=== PATIENT | female | born 1965 | race Caucasian/White ===

== ENCOUNTER 2016-12-25 09:36 | Day surgery (SDC) | payer OTHER ==
[2016-12-24 10:46] VITALS: BMI 24.7
[~2016-12-25 09:36] MED LIST: LACTATED RINGERS 1,000 ML IV SCH
[2016-12-25 09:49] VITALS: TEMP 98
[2016-12-25] MEDS ORDERED: LACTATED RINGERS 1,000 ML IV ONE (09:49)
[2016-12-25] MEDS ORDERED: LIDOCAINE 1% 20 ML VIAL (10MG/ML) FOR IV START INTRADERMA ONE (09:50)
[2016-12-25] MEDS ORDERED: LIDOCAINE 1% INJ 10MG/ML (20 ML MDV) ONE (11:14)
[2016-12-25] MEDS ORDERED: PROPOFOL 10 MG/ML 20 ML VIAL IV ONE (11:14)
--- NOTE | 2016-12-25 11:17 | P.GSHP ---
History of Present Illness H&P Date: 12/25/16 Chief Complaint: GI bleed This a 51-year-old female second complaints of epigastric abdominal pain and GI bleed. Patient rents today for EGD and colonoscopy. She has had a previous history of peptic ulcer disease. Past Medical History Past Medical History: GERD/Reflux, Skin Disorder Additional Past Medical History / Comment(s): "freq constipation, heartburn since gall bladder removed,pain where gallbladder used to be, and bleeding from the rectum 2 weeks ago",Acne,2 large cyst rt kidney History of Any Multi-Drug Resistant Organisms: None Reported Past Surgical History: Back Surgery, Cholecystectomy, Hysterectomy Additional Past Surgical History / Comment(s): kyphoplasty L2 Past Anesthesia/Blood Transfusion Reactions: Family History of Problems w/ Anesthesia, Postoperative Nausea & Vomiting (PONV) Additional Past Anesthesia/Blood Transfusion Reaction / Comment(s): Mother PONV.No hx blood transfusion Smoking Status: Current every day smoker - Past Family History Mother Family Medical History: Cancer, Diabetes Mellitus Additional Family Medical History / Comment(s): pancreatic,bowel,liver Father Family Medical History: Cancer, Diabetes Mellitus Additional Family Medical History / Comment(s): brain tumor,leukemia Medications and Allergies Home Medications Medication Instructions Recorded Confirmed Type Clindamycin Phosphate [Cleocin T] 1 applic TOPICAL DAILY 12/24/16 12/24/16 History DULoxetine HCL [Cymbalta] 60 mg PO QAM 12/24/16 12/24/16 History FLUoxetine HCL [PROzac] 20 mg PO HS 12/24/16 12/24/16 History Gabapentin 600 mg PO TID 12/24/16 12/25/16 History Minocycline HCl 100 mg PO BID 12/24/16 12/24/16 History Multivit-Min/FA/Lycopen/Lutein 1 each PO DAILY 12/24/16 12/24/16 History [Centrum Silver Tablet] Omeprazole 20 mg PO BID 12/24/16 12/24/16 History Ranitidine HCl 150 mg PO BID 12/24/16 12/24/16 History buPROPion HCL [buPROPion HCL SR] 150 mg PO QAM 12/24/16 12/24/16 History Allergies Allergy/AdvReac Type Severity Reaction Status Date / Time No Known Allergies Allergy Verified 12/24/16 10:34 Surgical - Exam Vital Signs Temp Pulse Resp BP Pulse Ox 98.0 F 78 18 108/74 99 12/25/16 09:48 12/25/16 09:48 12/25/16 09:48 12/25/16 09:48 12/25/16 09:48 - General well developed - Eyes PERRL - ENT normal pinna - Neck no masses - Respiratory normal expansion - Cardiovascular Rhythm: regular - Abdomen Abdomen: soft, non tender Assessment and Plan Plan: GI bleed, history of peptic ulcer disease. We'll perform EGD and colonoscopy.
--- NOTE | 2016-12-25 11:32 | P.OP ---
Date of Procedure: 12/25/16 Preoperative Diagnosis: GI bleed Postoperative Diagnosis: Antral gastritis Large sliding hiatal hernia Esophagitis with erosion Normal colon Procedure(s) Performed: EGD Colonoscopy Implants: Anesthesia: MAC Surgeon: Asael Larson Pathology: other (Antrum, esophagus) Condition: stable Disposition: PACU Indications for Procedure: Operative Findings: Description of Procedure: PROCEDURE: The patient was placed on the endoscopy table in the lateral position. Digital rectal examination was performed which revealed no abnormalities. . Flexible colonoscope was then placed in the patient's anus and passed throughout the entire colon. The ileocecal valve was visualized. The cecum, ascending, transverse, descending and sigmoid colon were normal. The rectum was normal as well. There were no masses, polyps or diverticula noted in the entire colon. Next, the gastric was placed oropharynx and passed into the esophagus and into the stomach. The scope was then placed through the pylorus. The first and second portion of the duodenum appeared normal. Scope was then brought back the antrum and this appeared mildly inflamed. A biopsies performed. The scope was then retroflexed and the remainder of the stomach appeared normal. There was a large sliding hiatal hernia. The GE junction was at 38 cm. The distal esophagus inflamed is evidence of erosions. The proximal esophagus appeared normal. The scope was withdrawn for patient.
[2016-12-25 11:37] VITALS: RESP 16
[2016-12-25 11:47] VITALS: BP 98/66; PULSE 60
== END 2016-12-25 12:09 | disposition home or self-care (01) ==
LOC: ORWHC2ENDO 09:36
PROVIDERS: ATTEND Surgery
DX: K21.0 Gastro-esophageal reflux disease with esophagitis (principal); K29.50 Unspecified chronic gastritis without bleeding; K44.9 Diaphragmatic hernia without obstruction or gangrene; K92.2 Gastrointestinal hemorrhage, unspecified; K59.00 Constipation, unspecified; F17.200 Nicotine dependence, unspecified, uncomplicated; F39 Unspecified mood [affective] disorder; Z79.2 Long term (current) use of antibiotics; Z79.899 Other long term (current) drug therapy
CPT/HCPCS: 88305; 88342; 45378; 43239; J2001; J2704

== ENCOUNTER → 2017-09-21 | Outpatient (CLI) | payer BC ==
[2017-09-21 11:52] LABS: Basophils % (A) 1 %; Eosinophils # (A) 0.2 k/uL (0-0.7); Eosinophils % (A) 2 %; HCT 45.1 % (34.0-46.0); HGB 15.1 gm/dL (11.4-16.0); Lymphocytes # (A) 2.6 k/uL (1.0-4.8); Lymphocytes % (A) 35 %; MCHC 33.4 g/dL (31.0-37.0); MCV 95.9 fL (80.0-100.0); Mean Platelet Volume 7.4; Monocytes # (A) 0.3 k/uL (0-1.0); Monocytes % (A) 5 %; Neutrophils % (A) 56 %; Platelet Count 228 k/uL (150-450); RDW 12.6 % (11.5-15.5); WBC 7.3 k/uL (3.8-10.6)
== END | disposition home or self-care (01) ==
LOC: LABPAT 11:20
PROVIDERS: ATTEND Surgery
DX: Z01.812 Encounter for preprocedural laboratory examination (principal); D64.9 Anemia, unspecified; K21.0 Gastro-esophageal reflux disease with esophagitis; F17.200 Nicotine dependence, unspecified, uncomplicated
CPT/HCPCS: 36415; 85025

== ENCOUNTER 2017-09-24 08:31 | Inpatient (IN) | payer BC ==
[2017-09-23 10:25] VITALS: BMI 23.1
[~2017-09-24 08:31] MED LIST changes: +DEXAMETHASONE SOD PHOSPHATE 10 MG/ML 1 ML VIAL IV ONE; +HEPARIN SODIUM,PORCINE 5,000 UNIT/ML 1 ML VIAL SQ ONE; +LIDOCAINE 1% 20 ML VIAL (10MG/ML) FOR IV START INTRADERMA PRN; +MIDAZOLAM 2 MG/2 ML VIAL IV PRN; +MORPHINE SULFATE 4 MG/0.8 ML SYRINGE (INJ) IV PRN; +SCOPOLAMINE 1.5MG/72HR PATCH TRANSDERM ONE; +ceFAZolin IN SWFI 2 GM/20 ML SYRINGE IVP ONE
[2017-09-24] MEDS ORDERED: ONDANSETRON 4 MG/2 ML VIAL IVP ONE (10:05)
[2017-09-24] MEDS: ONDANSETRON ODT 4 MG TAB PO ONE ×2 (10:05→14:07)
--- NOTE | 2017-09-24 10:15 | P.GSHP ---
History of Present Illness H&P Date: 09/24/17 Chief Complaint: GERD This is a 51-year-old female referred from Dr. dunne. Patient presents today for laparoscopic Calvin fundal location.The patient has had long-standing problems with reflux esophagitis. The patient underwent recent EGD is found have evidence of esophagitis. Patient has been well informed on the procedure of laparoscopic Calvin fundoplication. The patient is aware the risk of the conversion to the open procedure, risk of injury to the stomach, liver and spleen. The patient is also a risk of recurrent GERD and dysphagia symptoms. The patient understands there is a postoperative diet of full liquids for 2 weeks after surgery. Past Medical History Past Medical History: GERD/Reflux, Musculoskeletal Disorder, Skin Disorder Additional Past Medical History / Comment(s): "freq constipation. heartburn since gall bladder removed. HX GASTRIC ULCER. HIATAL HERNIA. Acne. 2 large cyst rt kidney. HEALED FX IN BACK, CHRONIC DAILY BACK PAIN. History of Any Multi-Drug Resistant Organisms: None Reported Past Surgical History: Back Surgery, Cholecystectomy, Hysterectomy Additional Past Surgical History / Comment(s): kyphoplasty L2. EGD. COLONOSCOPY. Past Anesthesia/Blood Transfusion Reactions: Postoperative Nausea & Vomiting ( PONV) Additional Past Anesthesia/Blood Transfusion Reaction / Comment(s): Mother PONV. No hx blood transfusion Past Psychological History: Depression Smoking Status: Current every day smoker Past Alcohol Use History: Rare Additional Past Alcohol Use History / Comment(s): started smoking at age 13, 1ppd Past Drug Use History: None Reported - Past Family History Mother Family Medical History: Cancer, Diabetes Mellitus, Deep Vein Thrombosis (DVT) Additional Family Medical History / Comment(s): pancreatic,bowel,liver Father Family Medical History: Cancer, Diabetes Mellitus Additional Family Medical History / Comment(s): brain tumor,leukemia Medications and Allergies Home Medications Medication Instructions Recorded Confirmed Type Clindamycin Phosphate [Cleocin T] 1 applic TOPICAL BID 12/24/16 09/23/17 History DULoxetine HCL [Cymbalta] 60 mg PO BID 12/24/16 09/23/17 History FLUoxetine HCL [PROzac] 20 mg PO HS 12/24/16 09/23/17 History Gabapentin 600 mg PO TID 12/24/16 09/23/17 History Minocycline HCl 100 mg PO BID 12/24/16 09/23/17 History Omeprazole 20 mg PO BID 12/24/16 09/23/17 History Ranitidine HCl 150 mg PO BID 12/24/16 09/23/17 History Biotin 10,000 mcg PO DAILY 09/04/17 09/23/17 History Melatonin 1 mg PO HS 09/04/17 09/23/17 History Multivitamin/Iron/Folic Acid 1 each PO DAILY 09/04/17 09/23/17 History [Centrum Women Tablet] Polyethylene Glycol 3350 [Miralax] 17 gm PO BID PRN 09/04/17 09/23/17 History Bimatoprost [Latisse .03%] 1 dropper TOPICAL DAILY 09/23/17 09/23/17 History Hydrocodone/Acetaminophen [Vicodin 1 tab PO Q6HR PRN 09/23/17 09/23/17 History Es 7.5-300 mg Tablet] Allergies Allergy/AdvReac Type Severity Reaction Status Date / Time No Known Allergies Allergy Verified 09/09/17 08:41 Surgical - Exam Vital Signs Temp Pulse Resp BP Pulse Ox 98.3 F 66 18 101/68 96 09/24/17 09:38 09/24/17 09:38 09/24/17 09:38 09/24/17 09:38 09/24/17 09:38 - General well developed, no distress - Eyes PERRL - ENT normal pinna - Neck no masses - Respiratory normal expansion - Cardiovascular Rhythm: regular - Abdomen Abdomen: soft, non tender Assessment and Plan Assessment: GERD. We'll perform laparoscopic Calvin fundal plication.
[2017-09-24] MEDS ORDERED: SUCCINYLCHOLINE CHLORIDE 100 MG/5 ML SYR IV ONE (10:27)
[2017-09-24] MEDS ORDERED: VECURONIUM 10 MG VIAL IV ONE (10:27)
[2017-09-24] MEDS ORDERED: GLYCOPYRROLATE 0.2 MG/ML 2 ML VIAL ONE (10:27)
[2017-09-24] MEDS ORDERED: ePHEDrine SULFATE/0.9% NACL/PF 50 MG/5 ML SYRINGE IV ONE (10:27)
[2017-09-24] MEDS ORDERED: LIDOCAINE 1% INJ 10MG/ML (20 ML MDV) ONE (10:27)
[2017-09-24] MEDS ORDERED: fentaNYL (PF) 50 MCG/ML 2 ML AMP ONE (10:27)
[2017-09-24] MEDS ORDERED: PROPOFOL 10 MG/ML 20 ML VIAL IV ONE (10:27)
[2017-09-24] MEDS ORDERED: PHENYLEPHRINE-0.9% NACL SYG 1 MG/10 ML SYRINGE ONE (10:27)
[2017-09-24] MEDS ORDERED: NEOSTIGMINE 1 MG/ML 10 ML VIAL ONE (10:27)
[2017-09-24] MEDS ORDERED: MIDAZOLAM 2 MG/2 ML VIAL ONE (10:27)
[2017-09-24] MEDS ORDERED: MORPHINE SULFATE 10 MG/ML SYRINGE ONE (10:27)
[2017-09-24] MEDS ORDERED: BUPIVACAINE (PF) 0.25% 30 ML VIAL SQ ONE (11:02)
[2017-09-24] MEDS ORDERED: LACTATED RINGERS 1,000 ML IV ONE (11:08)
[2017-09-24] MEDS ORDERED: ONDANSETRON 4 MG/2 ML VIAL IVP PRN (11:38)
--- NOTE | 2017-09-24 11:41 | P.OP ---
Date of Procedure: 09/24/17 Preoperative Diagnosis: GERD Postoperative Diagnosis: GERD Procedure(s) Performed: Laparoscopic Calvin fundoplication Anesthesia: ROSIE Surgeon: Asael Larson Estimated Blood Loss (ml): 5 Pathology: none sent Condition: stable Disposition: PACU Description of Procedure: The patient was placed on the operating table in the supine position. The patient received general anesthesia. And was placed in dorsal lithotomy position. The patient was prepped and draped in the usual sterile fashion. The skin incision sites were anesthetized with 1% local Xylocaine. The skin was incised in the left periumbilical area and then using a blade less 5 mm trocar under direct visualization panel cavity was entered. After adequate insufflation the laparoscope was then placed into the peritoneal cavity. Next a 5 mm trochars placed in the right epigastric position. Another 5 millimeter trocar the right lateral position. Another 5 millimeter trocar in the left lateral position a 5 mm trocar is placed in the left epigastric position. And then the initial 5 mm trocar was exchanged for a 10 mm trocar. The left lateral lobe liver was retracted. The hernia was seen. The crural defect was then dissected using the Harmonic scissors device. A 360 crural dissection was performed the esophagus stomach was reduced back into the peritoneal Cavity. The crural defect was then closed using 2-0 Ethibond suture. Next the fundus of the stomach was mobilized using the [place] scissors device. and then a 58-Yoruba bougie dilator was placed oropharynx passed into the esophagus and stomach the fundal plication wrap was then performed by grasping the fundus posteriorly and bringing it around the esophagus and stomach fundoplication was then performed using 2-0 Ethibond suture. Care was taken that the fundal location rested over top of the intra-abdominal esophagus. There was no injury seen to the stomach or esophagus. The dilator was then withdrawn. The abdomen was irrigated there is no bleeding seen. The trochars were then withdrawn and then skin incision sites were closed using 3-0 Monocryl suture Steri-Strips are applied. Patient thought procedure well and sent to recovery room in stable condition.
--- NOTE | 2017-09-24 15:39 | P.CONS ---
History of Present Illness - Reason for Consult Consult date: 09/24/17 Medical management Requesting physician: Asael Larson - Chief Complaint Status post Calvin fundoplication - History of Present Illness This is a 51-year-old female, patient of [facility]. She has a known past medical history of GERD, osteoarthritis, osteopenia, chronic back pain, acne, nicotine dependence and depression. Patient presents to the hospital for an elective Calvin fundoplication. She tolerated surgery well. No complications reported. Vitals are currently stable. Patient is starting reports some right-sided abdominal discomfort and shoulder discomfort. She denies any shortness of breath. Denies any nausea or vomiting. I was having regular bowel movements before admission and denies any burning with urination or difficulty urinating. Denies any fever or chills or sweats. We have been consulted for medical management. Review of Systems Please refer to HPI otherwise unremarkable Past Medical History Past Medical History: GERD/Reflux, Musculoskeletal Disorder, Skin Disorder Additional Past Medical History / Comment(s): "freq constipation. heartburn since gall bladder removed. HX GASTRIC ULCER. HIATAL HERNIA. Acne. 2 large cyst rt kidney. HEALED FX IN BACK, CHRONIC DAILY BACK PAIN. History of Any Multi-Drug Resistant Organisms: None Reported Past Surgical History: Back Surgery, Cholecystectomy, Hysterectomy Additional Past Surgical History / Comment(s): kyphoplasty L2. EGD. COLONOSCOPY. Past Anesthesia/Blood Transfusion Reactions: Postoperative Nausea & Vomiting ( PONV) Additional Past Anesthesia/Blood Transfusion Reaction / Comm: Mother PONV. No hx blood transfusion Past Psychological History: Depression Smoking Status: Current every day smoker Past Alcohol Use History: Rare Additional Past Alcohol Use History / Comment(s): started smoking at age 13, 1ppd Past Drug Use History: None Reported - Past Family History Mother Family Medical History: Cancer, Diabetes Mellitus, Deep Vein Thrombosis (DVT) Additional Family Medical History / Comment(s): pancreatic,bowel,liver Father Family Medical History: Cancer, Diabetes Mellitus Additional Family Medical History / Comment(s): brain tumor,leukemia Medications and Allergies Home Medications Medication Instructions Recorded Confirmed Type Clindamycin Phosphate [Cleocin T] 1 applic TOPICAL BID 12/24/16 09/24/17 History DULoxetine HCL [Cymbalta] 60 mg PO BID 12/24/16 09/24/17 History FLUoxetine HCL [PROzac] 20 mg PO HS 12/24/16 09/24/17 History Gabapentin 600 mg PO TID 12/24/16 09/24/17 History Minocycline HCl 100 mg PO BID 12/24/16 09/24/17 History Omeprazole 20 mg PO BID 12/24/16 09/24/17 History Ranitidine HCl 150 mg PO BID 12/24/16 09/24/17 History Biotin 10,000 mcg PO DAILY 09/04/17 09/24/17 History Melatonin 1 mg PO HS 09/04/17 09/24/17 History Multivitamin/Iron/Folic Acid 1 tab PO DAILY 09/04/17 09/24/17 History [Centrum Women Tablet] Polyethylene Glycol 3350 [Miralax] 17 gm PO BID PRN 09/04/17 09/24/17 History Bimatoprost [Latisse .03%] 1 dropper TOPICAL DAILY 09/23/17 09/24/17 History Hydrocodone/Acetaminophen [Vicodin 1 tab PO Q6HR PRN 09/23/17 09/24/17 History Es 7.5-300 mg Tablet] Allergies Allergy/AdvReac Type Severity Reaction Status Date / Time No Known Allergies Allergy Verified 09/24/17 14:04 Physical Exam Vitals: Vital Signs Temp Pulse Pulse Resp BP BP Pulse Ox 09/24/17 14:24 16 09/24/17 13:45 67 16 101/60 93 L 09/24/17 13:30 75 16 106/63 93 L 09/24/17 13:15 65 16 97/65 91 L 09/24/17 13:00 97.0 F L 58 L 16 105/58 96 09/24/17 12:34 59 L 16 124/65 100 09/24/17 12:19 60 16 120/70 100 09/24/17 12:04 83 16 121/70 100 09/24/17 11:49 97 F L 72 16 123/62 98 09/24/17 09:38 98.3 F 66 18 101/68 96 Intake and Output 09/24/17 09/24/17 09/24/17 06:59 14:59 22:59 Intake Total 1330 Output Total 10 Balance 1320 Intake: IV 1300 Oral 30 Output: Estimated Blood Loss 10 Other: Weight 68.039 kg Head normocephalic Neck supple Lungs clear to auscultation bilaterally no wheezing or crackles Heart regular rate and rhythm S1-S2, no rub or gallop Abdomen is soft nontender nondistended positive bowel sounds no hepatosplenomegaly Extremities no edema Neuro alert and orientated to 3 Assessment and Plan Assessment: 1. GERD: Status post Calvin fundoplication. Patient scheduled for esophagram. Continue with current pain medications. Surgery has started her on a clear liquid diet. 2. Nicotine dependence: Discussed smoking cessation for greater than 3 minutes. Add nicotine patch 3. Depression: Continue Prozac and Cymbalta 4. Acne resume patient's antibiotics the minocycline and clindamycin DVT prophylaxis Lovenox Check routine blood work CBC and BMP in a.m. Thank you for this consultation. We'll continue to follow along with you during patient's hospitalization Time with Patient: Greater than 30 (Greater than 50% of the total time spent in counseling and coordination of care.I performed an examination of the patient and discussed their management with the physician Grails Web Application Developer. I have reviewed the Physician Grails Web Application Developer's notes and agree with the documented findings and plan of care)
[2017-09-24] MEDS ORDERED: NICOTINE 21MG/24HR PATCH TRANSDERM SCH (16:00)
[2017-09-24] MEDS: MORPHINE SULFATE 4 MG/0.8 ML SYRINGE (INJ) IVP PRN ×2 (16:35→20:56)
[2017-09-24] MEDS: GABAPENTIN 300 MG CAP PO SCH ×2 (16:43→20:41)
--- NOTE | 2017-09-24 16:49 | FL ---
EXAMINATION TYPE: FL esophagus cervic/pharynx DATE OF EXAM: 09/24/2017 HISTORY: Post Ismael COMPARISON: NONE TECHNIQUE: Single contrast technique over the gastroesophageal junction is performed with water-solub le contrast. FINDINGS: There is moderate hesitancy of contrast passing through the level of the Ismael fundoplication. Terti dino contractions are evident within the distal esophagus during the exam. Contrast does pass through the post surgery site into the elongated stomach. Note is made of a moderate size free air collection under the left diaphragm and a smaller posterior collection under the right diaphragm. No evidence of extravasation is evident. IMPRESSION: 1. Moderate hesitancy passing through the Ismael fundoplication surgery site. 2. No extravasation evident.
[2017-09-24] MEDS: D5-0.45% NACL WITH KCL 20MEQ/L 1,000 ML IV SCH (18:14)
[2017-09-24 19:24] VITALS: RESP 18
[2017-09-24] MEDS: DULoxetine HCL 60 MG CAPSULE.DR PO SCH (20:40)
[2017-09-24] MEDS: MINOCYCLINE 50 MG CAP PO SCH (20:41)
[2017-09-24] MEDS ORDERED: FLUoxetine HCL 20 MG CAP PO SCH (21:00)
[2017-09-24] MEDS ORDERED: MELATONIN 1 MG TAB PO SCH (21:00)
[2017-09-24] MEDS ORDERED: NON-FORMULARY DRUG (Clindamycin Phosphate [Cleocin T] 1 APPLIC) TOPICAL SCH (21:00)
[2017-09-25] MEDS: D5-0.45% NACL WITH KCL 20MEQ/L 1,000 ML IV SCH (01:31)
[2017-09-25] MEDS: MORPHINE SULFATE 4 MG/0.8 ML SYRINGE (INJ) IVP PRN (01:32)
[2017-09-25 05:32] LABS: Basophils % (A) 0 %; Eosinophils % (A) 0 %; HCT 41.8 % (34.0-46.0); HGB 14.2 gm/dL (11.4-16.0); Lymphocytes # (A) 2.1 k/uL (1.0-4.8); Lymphocytes % (A) 16 %; MCH 33.5 pg (25.0-35.0); MCHC 34.1 g/dL (31.0-37.0); MCV 98.5 fL (80.0-100.0); Mean Platelet Volume 6.9; Monocytes # (A) 0.6 k/uL (0-1.0); Monocytes % (A) 5 %; Neutrophils # (A) 10.3 k/uL (1.3-7.7); Neutrophils % (A) 78 %; Platelet Count 210 k/uL (150-450); RBC 4.25 m/uL (3.80-5.40); RDW 12.7 % (11.5-15.5); WBC 13.2 k/uL (3.8-10.6)
[2017-09-25 05:40] LABS: Anion Gap 9 mmol/L; Blood Urea Nitrogen 8 mg/dL (7-17); Calcium 8.6 mg/dL (8.4-10.2); Carbon Dioxide 29 mmol/L (22-30); Chloride 103 mmol/L (98-107); Glucose 110 mg/dL (74-99); Potassium 4.5 mmol/L (3.5-5.1); Sodium 141 mmol/L (137-145)
[2017-09-25] MEDS: GABAPENTIN 300 MG CAP PO SCH (07:44)
[2017-09-25] MEDS: MINOCYCLINE 50 MG CAP PO SCH (07:44)
[2017-09-25] MEDS: DULoxetine HCL 60 MG CAPSULE.DR PO SCH (07:44)
[2017-09-25 08:43] VITALS: BP 114/75; PULSE 73; TEMP 98.2
[2017-09-25] MEDS ORDERED: ENOXAPARIN 40 MG/0.4 ML SYRINGE SQ SCH (09:00)
[2017-09-25] MEDS ORDERED: BIMATOPROST TOPICAL SCH (09:00)
--- NOTE | 2017-09-25 10:40 | P.PN ---
Subjective Progress Note Date: 09/25/17 Status post Calvin fundoplication Patient's pain is controlled. She's had been up and ambulating. Tolerating diet. Passing gas. Denies any chest pain or shortness of breath. Denies any nausea vomiting. She is scheduled for discharge is afternoon. Objective - Vital Signs Vital signs: Vital Signs Temp 98.2 F 09/25/17 07:00 Pulse 73 09/25/17 07:00 Resp 18 09/25/17 07:00 BP 114/75 09/25/17 07:00 Pulse Ox 94 L 09/25/17 07:00 Intake & Output 09/24/17 09/25/17 09/25/17 18:59 06:59 18:59 Intake Total 2230 600 1400 Output Total 10 Balance 2220 600 1400 Weight 68.039 kg 68.039 kg Intake: IV 1300 Oral [phone] Output: Estimated Blood Loss 10 Other: Voiding Method Toilet # Voids 1 1 1 - Exam Head normocephalic Neck supple Lungs clear to auscultation bilaterally no wheezing or crackles Heart regular rate and rhythm S1-S2, no rub or gallop Abdomen is soft nontender nondistended positive bowel sounds no hepatosplenomegaly. Incision sites are clean dry and intact. No evidence of cellulitis Extremities no edema Neuro alert and orientated to 3 - Labs CBC & Chem 7: 09/25/17 05:21 09/25/17 05:21 Labs: Abnormal Lab Results - Last 24 Hours (Table) 09/25/17 09/25/17 Range/Units 05:21 05:21 WBC 13.2 H (3.8-10.6) k/uL Neutrophils # 10.3 H (1.3-7.7) k/uL Glucose 110 H (74-99) mg/dL Assessment and Plan Assessment: 1. GERD: Status post Calvin fundoplication. Tolerating diet. Pain medications per surgical service 2. Nicotine dependence: Discussed smoking cessation for greater than 3 minutes. Patient will be given a prescription for nicotine patch for home 3. Depression: Continue Prozac and Cymbalta 4. Acne resume patient's antibiotics the minocycline and clindamycin 5. Leukocytosis likely reactive from surgery. She did receive dexamethasone. No evidence of any active infection. Patient is medically stable for discharge when cleared by surgical service. Will have patient follow-up with her PCP in 1 week I performed an examination of the patient and discussed their management with the physician Script Artist. I have reviewed the Physician Script Artist's notes and agree with the documented findings and plan of care
[2017-09-25] MEDS ORDERED: HYDROmorphone 4 MG TABLET PO PRN (11:10)
--- NOTE | 2017-10-01 11:50 | P.DS ---
Providers Date of admission: 09/24/17 08:31 Expected date of discharge: 09/25/17 Attending physician: Asael Larson Consults: 09/24/17 11:38 Consult Physician Routine Consulting Provider: Krista Woodard Consult Reason/Comments: Medical management Do you want consulting provider notified?: Yes Primary care physician: [place] Hospital Course: This is a 51-year-old female who underwent laparoscopic Calvin fundal plication on 09/24/2017. Patient was discharged home on postoperative day 1. She did well postoperatively. Her esophagram showed no evidence of leak or obstruction. Please hospital chart for details. Procedures: Laparoscopic Calvin fundal plication Patient Condition at Discharge: Good Plan - Discharge Summary Discharge Rx Participant: No New Discharge Prescriptions: New Nicotine 21Mg/24Hr Patch [Habitrol] 1 patch TRANSDERM Q24H #30 patch Docusate [Colace] 100 mg PO BID #20 capsule HYDROcodone/APAP 7.5-325MG [[place] 7.5] 1 each PO Q4H PRN #30 tab PRN Reason: Pain Continue Clindamycin Phosphate [Cleocin T] 1 applic TOPICAL BID FLUoxetine HCL [PROzac] 20 mg PO HS DULoxetine HCL [Cymbalta] 60 mg PO BID Minocycline HCl 100 mg PO BID Gabapentin 600 mg PO TID Polyethylene Glycol 3350 [Miralax] 17 gm PO BID PRN PRN Reason: Constipation Biotin 10,000 mcg PO DAILY Melatonin 1 mg PO HS Multivitamin/Iron/Folic Acid [Centrum Women Tablet] 1 tab PO DAILY Bimatoprost [Latisse .03%] 1 dropper TOPICAL DAILY No Action Ranitidine HCl 150 mg PO BID Omeprazole 20 mg PO BID Hydrocodone/Acetaminophen [Vicodin Es 7.5-300 mg Tablet] 1 tab PO Q6HR PRN PRN Reason: Pain Discharge Medication List Clindamycin Phosphate [Cleocin T] 1 applic TOPICAL BID 12/24/16 [History] DULoxetine HCL [Cymbalta] 60 mg PO BID 12/24/16 [History] FLUoxetine HCL [PROzac] 20 mg PO HS 12/24/16 [History] Gabapentin 600 mg PO TID 12/24/16 [History] Minocycline HCl 100 mg PO BID 12/24/16 [History] Omeprazole 20 mg PO BID 12/24/16 [History] Ranitidine HCl 150 mg PO BID 12/24/16 [History] Biotin 10,000 mcg PO DAILY 09/04/17 [History] Melatonin 1 mg PO HS 09/04/17 [History] Multivitamin/Iron/Folic Acid [Centrum Women Tablet] 1 tab PO DAILY 09/04/17 [ History] Polyethylene Glycol 3350 [Miralax] 17 gm PO BID PRN 09/04/17 [History] Bimatoprost [Latisse .03%] 1 dropper TOPICAL DAILY 09/23/17 [History] Hydrocodone/Acetaminophen [Vicodin Es 7.5-300 mg Tablet] 1 tab PO Q6HR PRN 09/23 [History] Docusate [Colace] 100 mg PO BID #20 capsule 09/25/17 [Rx] HYDROcodone/APAP 7.5-325MG [[place] 7.5] 1 each PO Q4H PRN #30 tab 09/25/17 [Rx] Nicotine 21Mg/24Hr Patch [Habitrol] 1 patch TRANSDERM Q24H #30 patch 09/25/17 [ Rx] Follow up Appointment(s)/Referral(s): Ashley Steinberg MD [Primary Care Provider] - 1 Week Asael Larson MD [STAFF PHYSICIAN] - 2 Weeks (OCTOBER 08 at 1:40pm) Patient Instructions/Handouts: Adult Laparoscopic Calvin Fundoplication (DC) Activity/Diet/Wound Care/Special Instructions: Call for fever, chills, pain not relieved by meds, inabitlity to tolerate calvin diet, any problems or concers. No strenuous activity, no heavy lifting...nothing over 8lbs. No driving while taking narcotics. Daily shower, no tub baths. Discharge Disposition: HOME SELF-CARE
== END 2017-09-25 11:10 | disposition home or self-care (01) | DRG 328 ==
LOC: 2ORMAIN 08:31 → 6PED 11:35
PROVIDERS: ADMIT Surgery; ATTEND Surgery
PROC: 0BQT4ZZ Repair Diaphragm, Percutaneous Endoscopic Approach (ICD-10-PCS; 2017-09-24)
PROC: 0DV44ZZ Restriction of Esophagogastric Junction, Percutaneous Endoscopic Approach (ICD-10-PCS; principal; 2017-09-24 10:40)
DX: K21.0 Gastro-esophageal reflux disease with esophagitis (principal); D72.829 Elevated white blood cell count, unspecified; F32.9 Major depressive disorder, single episode, unspecified; M85.80 Other specified disorders of bone density and structure, unspecified site; G89.29 Other chronic pain; K44.9 Diaphragmatic hernia without obstruction or gangrene; M54.9 Dorsalgia, unspecified; F17.210 Nicotine dependence, cigarettes, uncomplicated; M19.90 Unspecified osteoarthritis, unspecified site; L70.9 Acne, unspecified; Z71.6 Tobacco abuse counseling; Z79.899 Other long term (current) drug therapy; Z90.710 Acquired absence of both cervix and uterus; Z87.11 Personal history of peptic ulcer disease; Z90.49 Acquired absence of other specified parts of digestive tract; Z80.6 Family history of leukemia; Z83.3 Family history of diabetes mellitus; Z80.8 Family history of malignant neoplasm of other organs or systems; Z83.2 Family history of diseases of the blood and blood-forming organs and certain disorders involving the immune mechanism
CPT/HCPCS: 74210; 80048; 85025

== ENCOUNTER 2017-11-14 09:14 | Emergency (ER) | payer BC ==
[2017-11-14] MEDS ORDERED: SODIUM CHLORIDE 0.9% 1,000 ML IV STA (09:26)
--- NOTE | 2017-11-14 09:30 | ED ---
General Adult HPI - General Chief complaint: Abdominal Pain Stated complaint: Post Op Abd Pain Time Seen by Provider: 11/14/17 09:19 Source: patient, RN notes reviewed Mode of arrival: ambulatory Limitations: no limitations - History of Present Illness Initial comments: Patient 52-year-old female status post hiatal hernia repair times one month, presented to the emergency room today with a chief complaint of upper abdominal pain over the last 3 days. Patient states she had some increased discomfort yesterday. She states feels like spasms that last for 10-15 minutes located in the epigastric area. She states that yesterday she felt a little radiation to her back once. She states she has a history of chronic back pain. Patient does admit still feeling a little discomfort in the epigastric area today. Patient currently rates a 3/10. Patient does admit to feeling nauseated yesterday. She does admit that she's had some diarrhea for the last 3 days. Denies any other complaints. Patient denies any recent fever, chills, shortness of breath, chest pain, numbness or tingling, dysuria or hematuria, constipation , headaches or visual changes, or any other complaints. - Related Data Home Medications Medication Instructions Recorded Confirmed Clindamycin Phosphate [Cleocin T] 1 applic TOPICAL BID 12/24/16 09/24/17 DULoxetine HCL [Cymbalta] 60 mg PO BID 12/24/16 09/24/17 FLUoxetine HCL [PROzac] 20 mg PO HS 12/24/16 09/24/17 Gabapentin 600 mg PO TID 12/24/16 09/24/17 Minocycline HCl 100 mg PO BID 12/24/16 09/24/17 Omeprazole 20 mg PO BID 12/24/16 09/24/17 Ranitidine HCl 150 mg PO BID 12/24/16 09/24/17 Biotin 10,000 mcg PO DAILY 09/04/17 09/24/17 Melatonin 1 mg PO HS 09/04/17 09/24/17 Multivitamin/Iron/Folic Acid 1 tab PO DAILY 09/04/17 09/24/17 [Centrum Women Tablet] Polyethylene Glycol 3350 [Miralax] 17 gm PO BID PRN 09/04/17 09/24/17 Bimatoprost [Latisse .03%] 1 dropper TOPICAL DAILY 09/23/17 09/24/17 Hydrocodone/Acetaminophen [Vicodin 1 tab PO Q6HR PRN 09/23/17 09/24/17 Es 7.5-300 mg Tablet] Previous Rx's Medication Instructions Recorded Docusate [Colace] 100 mg PO BID #20 capsule 09/25/17 HYDROcodone/APAP 7.5-325MG [[place] 1 each PO Q4H PRN #30 tab 09/25/17 7.5] Nicotine 21Mg/24Hr Patch [Habitrol] 1 patch TRANSDERM Q24H #30 patch 09/25/17 Allergies Allergy/AdvReac Type Severity Reaction Status Date / Time No Known Allergies Allergy Verified 11/14/17 09:18 Review of Systems ROS Statement: Those systems with pertinent positive or pertinent negative responses have been documented in the HPI. ROS Other: All systems not noted in ROS Statement are negative. Past Medical History Past Medical History: GERD/Reflux, Musculoskeletal Disorder, Skin Disorder Additional Past Medical History / Comment(s): "freq constipation. heartburn since gall bladder removed. HX GASTRIC ULCER. HIATAL HERNIA. Acne. 2 large cyst rt kidney. HEALED FX IN BACK, CHRONIC DAILY BACK PAIN. History of Any Multi-Drug Resistant Organisms: None Reported Past Surgical History: Back Surgery, Cholecystectomy, Hernia Repair, Hysterectomy Additional Past Surgical History / Comment(s): kyphoplasty L2. EGD. COLONOSCOPY. Past Anesthesia/Blood Transfusion Reactions: Postoperative Nausea & Vomiting ( PONV) Additional Past Anesthesia/Blood Transfusion Reaction / Comment(s): Mother PONV. No hx blood transfusion Past Psychological History: Depression Smoking Status: Current every day smoker Past Alcohol Use History: Occasional Past Drug Use History: None Reported - Past Family History Mother Family Medical History: Cancer, Diabetes Mellitus, Deep Vein Thrombosis (DVT) Additional Family Medical History / Comment(s): pancreatic,bowel,liver Father Family Medical History: Cancer, Diabetes Mellitus Additional Family Medical History / Comment(s): brain tumor,leukemia General Exam - General Exam Comments Initial Comments: General: The patient is awake and alert, in no distress, and does not appear acutely ill. Eye: Pupils are equal, round and reactive to light, extra-ocular movements are intact. No nystagmus. There is normal conjunctiva bilaterally. No signs of icterus. Ears, nose, mouth and throat: There are moist mucous membranes and no oral lesions. Neck: The neck is supple, there is no tenderness or JVD. Cardiovascular: There is a regular rate and rhythm. No murmur, rub or gallop is appreciated. Respiratory: Lungs are clear to auscultation, respirations are non-labored, breath sounds are equal. No wheezes, stridor, rales, or rhonchi. Gastrointestinal: Abdomen soft on palpation. Patient does have tenderness epigastric. No rebound tenderness. No guarding. Musculoskeletal: Normal ROM, no tenderness. Strength 5/5. Sensation intact. Pulses equal bilaterally 2+. Neurological: A&O x 3. CN II-XII intact, There are no obvious motor or sensory deficits. Coordination appears grossly intact. Speech is normal. Skin: Skin is warm and dry and no rashes or lesions are noted. Psychiatric: Cooperative, appropriate mood & affect, normal judgment. Limitations: no limitations Course Vital Signs 11/14/17 09:15 Temperature 98.7 F Pulse Rate 101 H Respiratory 18 Rate Blood Pressure 113/73 O2 Sat by Pulse 98 Oximetry Medical Decision Making - Medical Decision Making Patient vitals are reviewed. Patient's x-rays unremarkable. Case was discussed in detail with attending physician Dr. Her. At this time patient does feel comfortable. Options were discussed about CT. Patient states that she feels comfortable being discharged at this time follow-up with her surgeon. Advised to return if symptoms increase worsen. - Lab Data Result diagrams: 11/14/17 09:30 11/14/17 09:30 Lab Results 11/14/17 11/14/17 11/14/17 Range/Units 09:30 09:30 09:30 WBC 8.4 (3.8-10.6) k/uL RBC 5.25 (3.80-5.40) m/uL Hgb 17.2 H D (11.4-16.0) gm/dL Hct 50.5 H (34.0-46.0) % MCV 96.3 (80.0-100.0) fL MCH 32.7 (25.0-35.0) pg MCHC 34.0 (31.0-37.0) g/dL RDW 12.6 (11.5-15.5) % Plt Count 216 (150-450) k/uL Neutrophils % 72 % Lymphocytes % 18 % Monocytes % 7 % Eosinophils % 1 % Basophils % 1 % Neutrophils # 6.1 (1.3-7.7) k/uL Lymphocytes # 1.6 (1.0-4.8) k/uL Monocytes # 0.6 (0-1.0) k/uL Eosinophils # 0.1 (0-0.7) k/uL Basophils # 0.0 (0-0.2) k/uL PT (9.0-12.0) sec INR (<1.2) APTT (22.0-30.0) sec Sodium 142 (137-145) mmol/L Potassium 3.9 (3.5-5.1) mmol/L Chloride 102 (98-107) mmol/L Carbon Dioxide 29 (22-30) mmol/L Anion Gap 11 mmol/L BUN 13 (7-17) mg/dL Creatinine 0.70 (0.52-1.04) mg/dL Est GFR (CKD-EPI)AfAm >90 (>60 ml/min/1.73 sqM) Est GFR (CKD-EPI)NonAf >90 (>60 ml/min/1.73 sqM) Glucose 95 (74-99) mg/dL Calcium 9.7 (8.4-10.2) mg/dL Total Bilirubin 0.6 (0.2-1.3) mg/dL AST 18 (14-36) U/L ALT 31 (9-52) U/L Alkaline Phosphatase 57 (38-126) U/L Total Creatine Kinase 56 (30-135) U/L CK-MB (CK-2) 0.5 (0.0-2.4) ng/mL CK-MB (CK-2) Rel Index 0.9 Troponin I <0.012 (0.000-0.034) ng/mL Total Protein 7.0 (6.3-8.2) g/dL Albumin 4.6 (3.5-5.0) g/dL Amylase 45 (30-110) U/L Lipase 127 (23-300) U/L Urine Color Urine Appearance (Clear) Urine pH (5.0-8.0) Ur Specific Fults (1.001-1.035) Urine Protein (Negative) Urine Glucose (UA) (Negative) Urine Ketones (Negative) Urine Blood (Negative) Urine Nitrite (Negative) Urine Bilirubin (Negative) Urine Urobilinogen (<2.0) mg/dL Ur Leukocyte Esterase (Negative) Urine RBC (0-5) /hpf Urine WBC (0-5) /hpf Ur Squamous Epith Cells (0-4) /hpf Urine Bacteria (None) /hpf Urine Mucus (None) /hpf Urine HCG, Qual (Not Detectd) 11/14/17 11/14/17 11/14/17 Range/Units 09:30 09:30 09:30 WBC (3.8-10.6) k/uL RBC (3.80-5.40) m/uL Hgb (11.4-16.0) gm/dL Hct (34.0-46.0) % MCV (80.0-100.0) fL MCH (25.0-35.0) pg MCHC (31.0-37.0) g/dL RDW (11.5-15.5) % Plt Count (150-450) k/uL Neutrophils % % Lymphocytes % % Monocytes % % Eosinophils % % Basophils % % Neutrophils # (1.3-7.7) k/uL Lymphocytes # (1.0-4.8) k/uL Monocytes # (0-1.0) k/uL Eosinophils # (0-0.7) k/uL Basophils # (0-0.2) k/uL PT 10.5 (9.0-12.0) sec INR 1.1 (<1.2) APTT 20.7 L (22.0-30.0) sec Sodium (137-145) mmol/L Potassium (3.5-5.1) mmol/L Chloride (98-107) mmol/L Carbon Dioxide (22-30) mmol/L Anion Gap mmol/L BUN (7-17) mg/dL Creatinine (0.52-1.04) mg/dL Est GFR (CKD-EPI)AfAm (>60 ml/min/1.73 sqM) Est GFR (CKD-EPI)NonAf (>60 ml/min/1.73 sqM) Glucose (74-99) mg/dL Calcium (8.4-10.2) mg/dL Total Bilirubin (0.2-1.3) mg/dL AST (14-36) U/L ALT (9-52) U/L Alkaline Phosphatase (38-126) U/L Total Creatine Kinase (30-135) U/L CK-MB (CK-2) (0.0-2.4) ng/mL CK-MB (CK-2) Rel Index Troponin I (0.000-0.034) ng/mL Total Protein (6.3-8.2) g/dL Albumin (3.5-5.0) g/dL Amylase (30-110) U/L Lipase (23-300) U/L Urine Color Yellow Urine Appearance Cloudy H (Clear) Urine pH 6.0 (5.0-8.0) Ur Specific Fults 1.027 (1.001-1.035) Urine Protein 2+ H (Negative) Urine Glucose (UA) Negative (Negative) Urine Ketones 1+ H (Negative) Urine Blood Moderate H (Negative) Urine Nitrite Negative (Negative) Urine Bilirubin 1+ H (Negative) Urine Urobilinogen 4.0 (<2.0) mg/dL Ur Leukocyte Esterase Moderate H (Negative) Urine RBC 12 H (0-5) /hpf Urine WBC 5 (0-5) /hpf Ur Squamous Epith Cells 9 H (0-4) /hpf Urine Bacteria Rare H (None) /hpf Urine Mucus Many H (None) /hpf Urine HCG, Qual Not Detected (Not Detectd) Disposition Clinical Impression: Abdominal pain Disposition: HOME SELF-CARE Condition: Good Instructions: Abdominal Pain (ED) Additional Instructions: Please follow-up with surgeon over the next 2 days. Please return here to emergency room if symptoms increase worsen or for any other concerns. Is patient prescribed a controlled substance at d/c from ED?: No Referrals: Ashley Steinberg MD [Primary Care Provider] - 1-2 days Asael Larson MD [STAFF PHYSICIAN] - 1-2 days Time of Disposition: 11:01
[2017-11-14 10:02] LABS: Appearance,Urine Cloudy (Clear); Bacteria,Urine Rare /hpf; Bilirubin,Urine 1+ (Negative); Blood,Urine Moderate (Negative); Color,Urine Yellow; Glucose,Urine (UA) Negative (Negative); Ketones,Urine 1+ (Negative); Leukocyte Esterase,Urine Moderate (Negative); Mucus,Urine Many /hpf; Nitrite,Urine Negative (Negative); Protein,Urine 2+ (Negative); RBC,Urine 12 /hpf (0-5); Specific Gravity,Urine 1.027 (1.001-1.035); Squamous Epithelial Cell,Urine 9 /hpf (0-4); WBC,Urine 5 /hpf (0-5)
[2017-11-14 10:04] LABS: ALT 31 U/L (9-52); AST 18 U/L (14-36); Albumin 4.6 g/dL (3.5-5.0); Alkaline Phosphatase 57 U/L (38-126); Amylase 45 U/L (30-110); Anion Gap 11 mmol/L; Blood Urea Nitrogen 13 mg/dL (7-17); Calcium 9.7 mg/dL (8.4-10.2); Carbon Dioxide 29 mmol/L (22-30); Chloride 102 mmol/L (98-107); Glucose 95 mg/dL (74-99); Lipase 127 U/L (23-300); Potassium 3.9 mmol/L (3.5-5.1); Sodium 142 mmol/L (137-145); Total Bilirubin 0.6 mg/dL (0.2-1.3)
[2017-11-14 10:07] LABS: Basophils % (A) 1 %; Eosinophils # (A) 0.1 k/uL (0-0.7); Eosinophils % (A) 1 %; HCT 50.5 % (34.0-46.0); INR 1.1 (<1.2); Lymphocytes # (A) 1.6 k/uL (1.0-4.8); Lymphocytes % (A) 18 %; MCH 32.7 pg (25.0-35.0); MCV 96.3 fL (80.0-100.0); Mean Platelet Volume 7.3; Monocytes # (A) 0.6 k/uL (0-1.0); Monocytes % (A) 7 %; Neutrophils # (A) 6.1 k/uL (1.3-7.7); Neutrophils % (A) 72 %; Platelet Count 216 k/uL (150-450); Prothrombin Time 10.5 sec (9.0-12.0); RBC 5.25 m/uL (3.80-5.40); RDW 12.6 % (11.5-15.5); WBC 8.4 k/uL (3.8-10.6)
[2017-11-14 10:13] LABS: HGB 17.2 gm/dL (11.4-16.0)
[2017-11-14 10:14] LABS: Creatine Kinase 56 U/L (30-135)
--- NOTE | 2017-11-14 10:14 | XR ---
EXAMINATION TYPE: XR KUB DATE OF EXAM: 11/14/2017 COMPARISON: May 06, 2012 HISTORY: Epigastric pain for 3 days TECHNIQUE: 2 upright views FINDINGS: Visualized lung bases and pleural spaces are negative. There is no pneumoperitoneum. No pneumatosis. The bowel gas pattern shows a few scattered loops of no rmal-appearing bowel with excessive stool in the right lower quadrant deep in the pelvis. The soft tissues and skeletal structures of the abdomen and pelvis are unremarkable for acute finding s. IMPRESSION: No acute radiographic process.
--- NOTE | 2017-11-14 10:19 | XR ---
EXAMINATION: XR chest 2V DATE AND TIME: 11/14/2017 10:00 AM ORDERING PROVIDER: Arnaud Mcdowell CLINICAL INDICATION: Epigastric pain TECHNIQUE: PA and lateral COMPARISON: None. DESCRIPTION: Mild biapical pleural-parenchymal changes are noted, greater on the right, with the over lying ribs being intact. Otherwise, the lungs are clear and the pleural spaces are negative. The cardiac silhouette is not enlarged. Mediastinal structures are unremarkable. The skeletal structures and soft tissues are intact without acute findings. IMPRESSION: NO ACUTE RADIOGRAPHIC PROCESS.
[2017-11-14 10:24] LABS: Partial Thromboplastin Time 20.7 sec (22.0-30.0)
[2017-11-14 10:26] LABS: Creatine Kinase MB 0.5 ng/mL (0.0-2.4); Troponin I <0.012 ng/mL (0.000-0.034)
[2017-11-14 11:13] VITALS: BP 130/80; PULSE 76; RESP 16; TEMP 98.6
== END 2017-11-14 11:13 | disposition home or self-care (01) ==
LOC: EC 09:14
DX: R10.13 Epigastric pain (principal); R19.7 Diarrhea, unspecified; K21.9 Gastro-esophageal reflux disease without esophagitis; L70.9 Acne, unspecified; F32.9 Major depressive disorder, single episode, unspecified; F17.200 Nicotine dependence, unspecified, uncomplicated; Z79.899 Other long term (current) drug therapy; Z90.49 Acquired absence of other specified parts of digestive tract; Z98.890 Other specified postprocedural states; Z80.0 Family history of malignant neoplasm of digestive organs
CPT/HCPCS: 36415; 71046; 74018; 80053; 81001; 81025; 82150; 82550; 82553; 83690; 84484; 85025; 85610; 85730; 93005; 96360; 99284

== ENCOUNTER → 2021-11-04 | Outpatient (CLI) | payer BC ==
--- NOTE | 2021-11-05 04:25 | MR ---
EXAMINATION TYPE: MR brain wo/w con DATE OF EXAM: 11/04/2021 COMPARISON: None HISTORY: Memory loss CONTRAST: Standard multiplanar, multisequence MRI departmental protocol images were obtained without contrast a nd with 7 mL intravenous Gadavist gadolinium contrast. The diffusion images show no sign of an acute infarct. Ventricles have fairly normal size. There is n o mass effect or midline shift. There is no evidence of intracranial hemorrhage. There are a few smal l scattered white matter high signal foci on the T2 and FLAIR images that measure up to 3 to 4 mm. To valentina numbers less than 10. The brainstem is intact. Cerebellum is intact. Corpus callosum is intact. There is no evidence of sellar mass. There is no evidence of orbital mass. The contrast images show no pathologic enhancement. There is normal enhancement of the venous sinuses . IMPRESSION: MRI scan of the brain is demonstrating scattered white matter high signal foci that could relate to s ome minimal microvascular ischemia. I do not suspect demyelinating disease. No evidence of cortical i nfarct.
== END | disposition home or self-care (01) ==
LOC: RADMRIMAIN 06:04
PROVIDERS: ATTEND Family Medicine
DX: R90.89 Other abnormal findings on diagnostic imaging of central nervous system (principal); R41.3 Other amnesia
CPT/HCPCS: 70553; A9585

== ENCOUNTER → 2022-01-31 | Outpatient (CLI) | payer BC ==
--- NOTE | 2022-02-04 06:41 | MM ---
Reason for Exam: Screening (asymptomatic). Last mammogram was performed 8 year(s) and 0 month(s) ago. Patient History: Menarche at age 9. Patient has no children. Risk Values: Zo 5 year model risk: 1.6%. NCI Lifetime model risk: 9.3%. Prior Study Comparison: 12/20/2004 Bilateral Screening Mammogram, [facility]. 03/19/2007 Bilateral Screening Mammogram, [facility]. 02/13/2014 Bilateral MG screening mammo w CAD - 2, [facility]. Tissue Density: The breast tissue is heterogeneously dense. This may lower the sensitivity of mammography. Findings: Analyzed By CAD. Benign-appearing bilateral axillary lymph nodes are redemonstrated. There is no suspicious group of microcalcifications or new suspicious mass in either breast. Overall Assessment: Negative, BI-RAD 1 Management: Screening Mammogram of both breasts in 1 year. Some advise bilateral breast ultrasound in patient's with background dense tissue. A clinical breast exam by your physician is recommended on an annual basis and results should be correlated with mammographic findings. Electronically signed and approved by: Leonard Chahal M.D.
== END | disposition home or self-care (01) ==
LOC: RADMAMWWP 09:56
PROVIDERS: ATTEND Family Medicine
DX: Z12.31 Encounter for screening mammogram for malignant neoplasm of breast (principal)
CPT/HCPCS: 77067

== ENCOUNTER 2023-06-20 10:01 | Emergency (ER) | payer MEDICAID ==
[2023-06-20 10:35] VITALS: RESP 18; TEMP 98.3
--- NOTE | 2023-06-20 11:34 | XR ---
Chest and right RIBS HISTORY: Trauma. COMPARISON: Chest dated 11/14/2017. TECHNIQUE: 5 views of the chest and right ribs are obtained FINDINGS: The lungs are clear. There is no pleural effusion or pneumothorax. The heart and pulmonary vasculature are normal. The osseous structures including the right ribs are intact. IMPRESSION: 1. No acute cardiopulmonary disease. 2. No evidence of right rib trauma.
[2023-06-20] MEDS ORDERED: ACET/COD 300 MG/30 MG STARTER PACK 6 TAB BTL PO STA (12:16)
--- NOTE | 2023-06-20 12:20 | ED ---
Back Pain HPI - General Chief Complaint: Back Pain/Injury Stated Complaint: Fell at home back pain Time Seen by Provider: 06/20/23 10:55 Source: patient, RN notes reviewed Limitations: no limitations - History of Present Illness Initial Comments: 57-year-old female presents emergency from chief complaint of a fall. Patient states she fell onto her right side with right-sided rib pain, back pain no head injury no loss conscious states it hurts with movement, deep inspiration no other complaints. - Related Data Home Medications Medication Instructions Recorded Confirmed Clindamycin Phosphate [Cleocin T] 1 applic TOPICAL BID 12/24/16 09/24/17 DULoxetine HCL [Cymbalta] 60 mg PO BID 12/24/16 09/24/17 FLUoxetine HCL [PROzac] 20 mg PO HS 12/24/16 09/24/17 Gabapentin 600 mg PO TID 12/24/16 09/24/17 Minocycline HCl [Minocin] 100 mg PO BID 12/24/16 09/24/17 Omeprazole 20 mg PO BID 12/24/16 09/24/17 raNITIdine HCL [Zantac] 150 mg PO BID 12/24/16 09/24/17 Biotin 10,000 mcg PO DAILY 09/04/17 09/24/17 Melatonin 1 mg PO HS 09/04/17 09/24/17 Multivitamin/Iron/Folic Acid 1 tab PO DAILY 09/04/17 09/24/17 [Centrum Women Tablet] polyethylene glycoL 3350 [Miralax] 17 gm PO BID PRN 09/04/17 09/24/17 Bimatoprost [Latisse 0.03% Topical 1 dropper TOPICAL DAILY 09/23/17 09/24/17 Soln] Hydrocodone/Acetaminophen [Vicodin 1 tab PO Q6HR PRN 09/23/17 09/24/17 Es 7.5-300 mg Tablet] Previous Rx's Medication Instructions Recorded Docusate [Colace] 100 mg PO BID #20 capsule 09/25/17 HYDROcodone/APAP 7.5-325MG [[place] 1 each PO Q4H PRN #30 tab 09/25/17 7.5] Nicotine 21Mg/24Hr Patch [Habitrol] 1 patch TRANSDERM Q24H #30 patch 09/25/17 Cyclobenzaprine [Flexeril] 10 mg PO TID PRN #15 tab 06/20/23 Ibuprofen [Motrin] 600 mg PO Q8HR PRN #20 tab 06/20/23 Allergies Allergy/AdvReac Type Severity Reaction Status Date / Time No Known Allergies Allergy Verified 06/20/23 10:14 Review of Systems ROS Statement: Those systems with pertinent positive or pertinent negative responses have been documented in the HPI. ROS Other: All systems not noted in ROS Statement are negative. Past Medical History Past Medical History: GERD/Reflux, Musculoskeletal Disorder, Skin Disorder Additional Past Medical History / Comment(s): "freq constipation. heartburn since gall bladder removed. HX GASTRIC ULCER. HIATAL HERNIA. Acne. 2 large cyst rt kidney. HEALED FX IN BACK, CHRONIC DAILY BACK PAIN. History of Any Multi-Drug Resistant Organisms: None Reported Past Surgical History: Back Surgery, Cholecystectomy, Hernia Repair, Hysterectomy Additional Past Surgical History / Comment(s): kyphoplasty L2. EGD. COLONOSCOPY. Past Anesthesia/Blood Transfusion Reactions: Postoperative Nausea & Vomiting (PONV) Additional Past Anesthesia/Blood Transfusion Reaction / Comment(s): Mother PONV. No hx blood transfusion Past Psychological History: Depression Smoking Status: Current every day smoker Past Alcohol Use History: Occasional Past Drug Use History: None Reported - Past Family History Mother Family Medical History: Cancer, Diabetes Mellitus, Deep Vein Thrombosis (DVT) Additional Family Medical History / Comment(s): pancreatic,bowel,liver Father Family Medical History: Cancer, Diabetes Mellitus Additional Family Medical History / Comment(s): brain tumor,leukemia General Exam Limitations: no limitations General appearance: alert, in no apparent distress Head exam: Present: atraumatic, normocephalic, normal inspection Respiratory exam: Present: normal lung sounds bilaterally, chest wall tenderness. Absent: respiratory distress, wheezes, rales, rhonchi, stridor Cardiovascular Exam: Present: regular rate, normal rhythm, normal heart sounds. Absent: systolic murmur, diastolic murmur, rubs, gallop, clicks GI/Abdominal exam: Present: soft, normal bowel sounds. Absent: distended, tenderness, guarding, rebound, rigid Back exam: Present: full ROM, tenderness, paraspinal tenderness. Absent: vertebral tenderness Neurological exam: Present: alert, oriented X3, CN II-XII intact Course Vital Signs 06/20/23 06/20/23 10:10 12:34 Temperature 98.3 F Pulse Rate 77 67 Respiratory 18 18 Rate Blood Pressure 112/67 134/83 O2 Sat by Pulse 96 98 Oximetry Medical Decision Making - Medical Decision Making Was pt. sent in by a medical professional or institution (TONJA Alanis, PRODUCTION MACHINIST, urgent care, hospital, or fdc...) When possible be specific @ -No Did you speak to anyone other than the patient for history (EMS, parent, family, police, friend...)? What history was obtained from this source @ -No Did you review nursing and triage notes (agree or disagree)? Why? @ -I reviewed and agree with nursing and triage notes Were old charts reviewed (outside hosp., previous admission, EMS record, old EKG, old radiological studies, urgent care reports/EKG's, fdc records)? Report findings @ -No old charts were reviewed Differential Diagnosis (chest pain, altered mental status, abdominal pain women, abdominal pain men, vaginal bleeding, weakness, fever, dyspnea, syncope, headache, dizziness, GI bleed, back pain, seizure, CVA, palpatations, mental health, musculoskeletal)? @ -Rib contusion, rib fracture, back pain EKG interpreted by me (3pts min.). @ -None X-rays interpreted by me (1pt min.). @ -X-ray rib series, chest x-ray shows no acute fracture, pneumothorax or acute abnormality CT interpreted by me (1pt min.). @ -None done U/S interpreted by me (1pt. min.). @ -None done What testing was considered but not performed or refused? (CT, X-rays, U/S, labs)? Why? @ -None What meds were considered but not given or refused? Why? @ -None Did you discuss the management of the patient with other professionals (professionals i.e. TONJA Alanis, PRODUCTION MACHINIST, lab, RT, psych nurse, social media specialist, rate and cost analyst, teacher, credit risk officer, showcase maker)? Give summary @ -No Was smoking cessation discussed for >3mins.? @ -No Was critical care preformed (if so, how long)? @ -No Were there social determinants of health that impacted care today? How? (Homelessness, low income, unemployed, alcoholism, drug addiction, transportation, low edu. Level, literacy, decrease access to med. care, long-term, rehab)? @ -No Was there de-escalation of care discussed even if they declined (Discuss DNR or withdrawal of care, Hospice)? DNR status @ -No What co-morbidities impacted this encounter? (DM, HTN, Smoking, COPD, CAD, Cancer, CVA, ARF, Chemo, Hep., AIDS, mental health diagnosis, sleep apnea, morbid obesity)? @ -None Was patient admitted / discharged? Hospital course, mention meds given and route, prescriptions, significant lab abnormalities, going to OR and other pertinent info. @ -[Discharge x-rays are negative for acute fracture. Patient reported contusion, back pain over discharged in stable condition return parameters were discussed. Undiagnosed new problem with uncertain prognosis? @ -No Drug Therapy requiring intensive monitoring for toxicity (Heparin, Nitro, Insulin, Cardizem)? @ -No Were any procedures done? @ -No Diagnosis/symptom? @ -Fall rib contusion, back pain Acute, or Chronic, or Acute on Chronic? @ -Acute Uncomplicated (without systemic symptoms) or Complicated (systemic symptoms)? @ -Uncomplicated Side effects of treatment? @ -No Exacerbation, Progression, or Severe Exacerbation? @ -No Poses a threat to life or bodily function? How? (Chest pain, [place], NH, pneumonia, PE, COPD, DKA, ARF, appy, cholecystitis, CVA, Diverticulitis, Homicidal, Suicidal, threat to staff... and all critical care pts) @ -No Disposition Clinical Impression: Fall, Contusion of rib on right side, Back pain Disposition: HOME SELF-CARE Condition: Stable Instructions (If sedation given, give patient instructions): Rib Contusion (ED) Additional Instructions: Please return to the Emergency Department if symptoms worsen or any other concerns. Prescriptions: Cyclobenzaprine [Flexeril] 10 mg PO TID PRN #15 tab PRN Reason: Muscle Spasm Ibuprofen [Motrin] 600 mg PO Q8HR PRN #20 tab PRN Reason: Pain Is patient prescribed a controlled substance at d/c from ED?: No Referrals: Bobby Dickinson MD [Primary Care Provider] - 1-2 days Time of Disposition: 12:20
[2023-06-20 12:49] VITALS: BP 134/83; PULSE 67
== END 2023-06-20 12:37 | disposition home or self-care (01) ==
LOC: EC 10:01
DX: S20.211A Contusion of right front wall of thorax, initial encounter (principal); M54.50 Low back pain, unspecified; K21.9 Gastro-esophageal reflux disease without esophagitis; F32.A Depression, unspecified; F17.200 Nicotine dependence, unspecified, uncomplicated; Z79.899 Other long term (current) drug therapy; W10.9XXA Fall (on) (from) unspecified stairs and steps, initial encounter; Y92.009 Unspecified place in unspecified non-institutional (private) residence as the place of occurrence of the external cause
CPT/HCPCS: 99283

== ENCOUNTER → 2023-09-08 | Outpatient (CLI) | payer MEDICAID ==
--- NOTE | 2023-09-08 18:55 | US ---
EXAMINATION TYPE: US Aorta Screening DATE OF EXAM: 09/08/2023 COMPARISON: NONE CLINICAL INDICATION: Female, 57 years old with history of R00.2 PALPITATIONS; palpitations. TECHNIQUE: Multiple sonographic images of the abdominal aorta are obtained. FINDINGS: EXAM MEASUREMENTS: Abdominal Aorta: Proximal: 3.0 x 2.2 cm Mid: 2.1 x 1.9 cm Distal: 1.9 x 1.7 cm Bifurcation: Right Iliac: 1.7 cm Left Iliac: 1.5 cm IMPRESSION: Proximal abdominal aorta measuring up to 3.0 cm which may be patient's normal anatomy.. Otherwise no evidence for aortic aneurysm.
== END | disposition home or self-care (01) ==
LOC: RADUSWWP 07:04
PROVIDERS: ATTEND Family Medicine
DX: R00.2 Palpitations (principal)
CPT/HCPCS: 76706

== ENCOUNTER → 2023-09-10 | Outpatient (CLI) | payer MEDICAID ==
--- NOTE | 2023-09-11 09:58 | CA ---
Transthoracic Echo Report Name: Gisel Marshall Age: 57 Gender: F : 1965 Exam Date: 09/10/2023 14:33 Exam Location: [address] [facility] Echo Ht (in): 67 Wt (lb): 164 Ordering Physician: Bobby Dickinson MD Attending/Referring Phys: Rhonda Grimm [facility] Tactical Deception Plans Officer Saundra Gr RCS Procedure CPT: Indications: R00.2 palpitations Cardiac Hx: Technical Quality: Good Contrast 1: Total Dose (mL): Contrast 2: Total Dose (mL): MEASUREMENTS (Male / Female) Normal Values 2D ECHO LV Diastolic Diameter PLAX 4.9 cm 4.2 - 5.9 / 3.9 - 5.3 cm LV Systolic Diameter PLAX 3.1 cm IVS Diastolic Thickness 0.7 cm 0.6 - 1.0 / 0.6 - 0.9 cm LVPW Diastolic Thickness 1.0 cm 0.6 - 1.0 / 0.6 - 0.9 cm LV Relative Wall Thickness 0.3 RV Internal Dim ED PLAX 2.7 cm LVOT Diameter 2.0 cm LV Diastolic Volume MOD BP 92.3 cm??? 67 - 155 / 56 - 104 cm??? LV Systolic Volume MOD BP 30.3 cm??? 22 - 58 / 19 - 49 cm??? LV Ejection Fraction MOD BP 67.2 % >= 55 % LV Cardiac Index MOD BP 2234.8 cm???/min???m??? LV Diastolic Volume MOD 4C 97.4 cm??? LV Systolic Volume MOD 4C 39.1 cm??? LV Ejection Fraction MOD 4C 59.9 % LV Cardiac Index MOD 4C 2103.4 cm???/min???m??? LV Diastolic Length 4C 8.9 cm LV Systolic Length 4C 7.3 cm LV Diastolic Volume MOD 2C 83.4 cm??? LV Systolic Volume MOD 2C 22.1 cm??? LV Ejection Fraction MOD 2C 73.5 % LV Cardiac Index MOD 2C 2206.8 cm???/min???m??? LV Diastolic Length 2C 8.5 cm LV Systolic Length 2C 6.8 cm LA Volume 46.3 cm??? 18 - 58 / 22 - 52 cm??? LA Volume Index 24.5 cm???/m??? 16 - 28 cm???/m??? DOPPLER AV Peak Velocity 145.7 cm/s AV Peak Gradient 8.5 mmHg AV Mean Velocity 97.6 cm/s AV Mean Gradient 4.4 mmHg AV Velocity Time Integral 26.7 cm LVOT Peak Velocity 122.8 cm/s LVOT Peak Gradient 6.0 mmHg LVOT Velocity Time Integral 21.1 cm LVOT Stroke Volume 64.8 cm??? LVOT Stroke Volume Index 34.9 ml/m??? LVOT Cardiac Index 2336.7 cm???/min???m??? AV Area Cont Eq vti 2.4 cm??? AV Area Cont Eq pk 2.6 cm??? MV Area PHT 3.8 cm??? Mitral E Point Velocity 64.3 cm/s Mitral A Point Velocity 72.9 cm/s Mitral E to A Ratio 0.9 MV Deceleration Time 198.6 ms TR Peak Velocity 207.8 cm/s TR Peak Gradient 17.3 mmHg Right Ventricular Systolic Press 22.3 mmHg PV Peak Velocity 100.7 cm/s PV Peak Gradient 4.1 mmHg FINDINGS Left Ventricle Left ventricular ejection fraction is estimated at 60 %. Left ventricular wall thickness normal. Left ventricular cavity size normal. No obvious regional wall motion abnormalities. Right Ventricle Normal right ventricular size and function. Right ventricular systolic pressure within normal limits. Right Atrium Normal right atrial size. Left Atrium Normal left atrial size. Mitral Valve Structurally normal mitral valve. No evidence for mitral valve prolapse. No mitral stenosis. Trace mitral regurgitation. Aortic Valve Trileaflet aortic valve. No aortic valve stenosis or regurgitation. Tricuspid Valve Structurally normal tricuspid valve. No tricuspid stenosis. Trace tricuspid regurgitation. Pulmonic Valve Structurally normal pulmonic valve. No pulmonic stenosis. No pulmonic regurgitation. Pericardium No pericardial effusion. Aorta Normal size aortic root and proximal ascending aorta. CONCLUSIONS Normal LV size and systolic function. No significant abnormality on the Doppler exam. No pulmonary hypertension. No pericardial effusion Previewed by: Dr. Nathen Tao MD (Electronically Signed) Final Date: 11 September 2023 09:57
== END | disposition home or self-care (01) ==
LOC: RADECHMAIN 14:24
PROVIDERS: ATTEND Family Medicine
DX: R00.2 Palpitations (principal)
CPT/HCPCS: 93306

== ENCOUNTER → 2023-09-18 | Outpatient (CLI) | payer MEDICAID ==
--- NOTE | 2023-09-18 11:14 | CA ---
Stress Echo Report Gisel Marshall Age: 57 Gender: F : 1965 Exam Date: 09/18/2023 10:18 Exam Location: [place] Echo Ht (in): 67 Wt (lb): 160 Ordering Physician: Bobby Dickinson MD Referring Physician: Rhonda Grimm [facility] Energy Risk Management Analyst: Domitila Bella RDCS Technologist Procedure CPT: Indication: R00.2 palpitations ICD-9 Codes: Rhythm: Patient History: PALPITATIONS, HYPERCHOLESTEROLEMIA, FAMILY HX OF HEART DISEASE, CURRENT SMOKER 1 PPD X 40 YEARS Cardiac Medications: ROSUVASTATIN Medications in past 24 hours: Contrast: Stress Results Protocol: Uli Total dose(mL): Exercise Duration (min:sec): 6:[address] Depression (mm): Angina Score: Cabrales Score: METS: 8.1 Resting HR: 71 Resting BP: 113 / 67 Peak HR: 150 Peak BP: 154 / 73 Max Predicted HR: 161 93 % Max Predicted HR Target HR: 137 Double Product: [id number] Stress Summary: BP Response: Reason for Termination: MAX EXERTION/TARGET HR Cardiac Symptoms: SAMIA ECG Analysis Resting ECG: Normal sinus rhythm normal axis normal intervals Stress ECG: Patient exercised on Uli protocol for 6 minutes and 45 seconds achieving 85% of predicted maximal heart rate without chest pain. At peak exercise there was half a millimeter upsloping ST segment depression noted Arrhythmia: Echo Analysis Resting Echo: Normal left ventricle a size wall motion systolic function Peak Echo Analysis: There is normal hyperdynamic response of all segments of myocardium noted MEASUREMENTS (Male/Female) Normal Values CONCLUSIONS Average exercise tolerance Nondiagnostic EKG changes with exercise Negative stress echo Dr. Gustavo Smith MD (Electronically Signed) Final Date: 18 September 2023 11:13
== END | disposition home or self-care (01) ==
LOC: RADNMMAIN 09:49
PROVIDERS: ATTEND Family Medicine
DX: R94.31 Abnormal electrocardiogram [ECG] [EKG] (principal); R00.2 Palpitations
CPT/HCPCS: 93351